=== PATIENT | female | born 1970 | race Caucasian/White ===

== ENCOUNTER 2017-10-04 14:11 | Emergency (ER) | payer OTHER ==
--- NOTE | 2017-10-04 15:13 | EDM.PDOC ---
ED HPI GENERAL MEDICAL PROBLEM - General Chief Complaint: Fever Stated Complaint: HAS CANCER RUNNING A TEMP UTI??? Time Seen by Provider: 10/04/17 15:13 Source of Information: Reports: Patient History Limitations: Reports: No Limitations - History of Present Illness INITIAL COMMENTS - FREE TEXT/NARRATIVE: pt arrived with a episode of chilling. she has a history of breast Ca with metastatic disease to the bone. She is on chemo. 1 month ago she had a uti which caused a fever for her. Onset: Other ( started last nite. ) Duration: Hour(s): Location: Reports: Generalized Associated Symptoms: Reports: Fever/Chills, Weakness Left Chest Pain Score (Numeric/FACES): 4 - Related Data Allergies Allergy/AdvReac Type Severity Reaction Status Date / Time No Known Allergies Allergy Verified 10/04/17 14:39 Home Meds: Home Meds Palbociclib [Ibrance] 125 mg PO DAILY 10/04/17 [History] Past Medical History Cardiovascular History: Reports: High Cholesterol Respiratory History: Reports: Other (See Below) Other Respiratory History: pneumonolitis l lung [employer] History: Reports: Psychiatric History: Reports: Anxiety Oncologic (Cancer) History: Reports: Breast - Infectious Disease History Infectious Disease History: Reports: Chicken Pox - Past Surgical History GI Surgical History: Reports: Appendectomy Female Surgical History: Reports: Breast Reconstruction, Hysterectomy, Other (See Below) Other Female Surgeries/Procedures: Breast removal Social & Family History - Tobacco Use Smoking Status *Q: Never Smoker Second Hand Smoke Exposure: No - Caffeine Use Caffeine Use: Reports: Coffee - Alcohol Use Days Per Week of Alcohol Use: 0 - Recreational Drug Use Recreational Drug Use: No ED ROS GENERAL - Review of Systems Review Of Systems: See Below Constitutional: Reports: Fever, Chills, Malaise HEENT: Reports: No Symptoms Respiratory: Reports: No Symptoms Cardiovascular: Reports: No Symptoms Endocrine: Reports: No Symptoms GI/Abdominal: Reports: Other (pt had shaking chills last nite. ) : Reports: No Symptoms Musculoskeletal: Reports: No Symptoms Skin: Reports: No Symptoms ED EXAM, GENERAL - Physical Exam Exam: See Below Free Text/Narrative:: pt had chills and spiked a temp. She had a UTI 1 month ago and she feels about the same. Exam Limited By: No Limitations General Appearance: Alert, Anxious, Mild Distress Ears: Normal TMs Nose: Normal Inspection Throat/Mouth: Normal Inspection Head: Atraumatic Neck: Normal Inspection Respiratory/Chest: No Respiratory Distress Cardiovascular: Regular Rate, Rhythm GI/Abdominal: Soft, Non-Tender (Female) Exam: Other ( Pt had no UTI symptoms. ) Rectal (Female) Exam: Deferred Back Exam: Normal Inspection Extremities: Normal Inspection Neurological: Alert, Oriented, Normal Cognition Psychiatric: Anxious Course - Vital Signs Last Recorded V/S: Last Vital Signs Temp 37.2 C 10/04/17 15:50 Pulse 99 10/04/17 15:50 Resp 16 10/04/17 15:50 BP 120/79 10/04/17 15:50 Pulse Ox 96 10/04/17 14:48 - Orders/Labs/Meds Orders: Active Orders 24 hr Category Date Time Status Chest 2V [CR] Stat Exams 10/04/17 15:12 Taken CULTURE BLOOD [BC] Urgent Lab 10/04/17 15:04 Received CULTURE BLOOD [BC] Urgent Lab 10/04/17 15:46 Received CULTURE URINE [RM] Stat Lab 10/04/17 15:20 Received CULTURE URINE [RM] Stat Lab 10/04/17 15:51 Ordered UA W/MICROSCOPIC [URIN] Urgent Lab 10/04/17 14:53 Ordered Blood Culture x2 Reflex Set [OM.PC] Urgent Oth 10/04/17 15:11 Ordered Labs: Laboratory Tests 10/04/17 10/04/17 10/04/17 Range/Units 14:53 15:09 15:09 WBC 2.2 L (4.5-11.0) K/uL RBC 3.62 (3.30-5.50) M/uL Hgb 12.5 (12.0-15.0) g/dL Hct 36.7 (36.0-48.0) % MCV 101 H (80-98) fL MCH 35 H (27-31) pg MCHC 34 (32-36) % Plt Count 162 (150-400) K/uL Neut % (Auto) 89 H (36-66) % Lymph % (Auto) 6 L (24-44) % [place] % (Auto) 5 (2-6) % Eos % (Auto) 0 L (2-4) % Baso % (Auto) 0 (0-1) % Sodium 137 L (140-148) mmol/L Potassium 3.7 (3.6-5.2) mmol/L Chloride 101 (100-108) mmol/L Carbon Dioxide 25 (21-32) mmol/L Anion Gap 14.7 H (5.0-14.0) mmol/L BUN 18 (7-18) mg/dL Creatinine 1.0 (0.6-1.0) mg/dL Est Cr Clr Drug Dosing 64.41 mL/min Estimated GFR (MDRD) 59 L (>60) Glucose 102 (74-106) mg/dL Calcium 8.8 (8.5-10.1) mg/dL Total Bilirubin 0.6 (0.2-1.0) mg/dL AST 20 (15-37) U/L ALT 27 (12-78) U/L Alkaline Phosphatase 65 (46-116) U/L Total Protein 6.9 (6.4-8.2) g/dL Albumin 3.6 (3.4-5.0) g/dL Globulin 3.3 (2.3-3.5) g/dL Albumin/Globulin Ratio 1.1 L (1.2-2.2) Urine Color Yellow Urine Appearance Slightly cloudy Urine pH 8.0 (4.5-8.0) Ur Specific [place] 1.015 (1.008-1.030) Urine Protein Negative (NEGATIVE) mg/dL Urine Glucose (UA) Normal (NEGATIVE) mg/dL Urine Ketones Negative (NEGATIVE) mg/dL Urine Occult Blood Negative (NEGATIVE) Urine Nitrite Negative (NEGATIVE) Urine Bilirubin Negative (NEGATIVE) Urine Urobilinogen Normal (NORMAL) mg/dL Ur Leukocyte Esterase Moderate (NEGATIVE) Urine RBC 0-5 (0-5) Urine WBC 5-10 H (0-5) Ur Epithelial Cells Many Amorphous Sediment Few Urine Bacteria Not seen Urine Mucus Not seen Meds: Medications Discontinued Medications Generic Name Dose Route Start Last Admin Trade Name Freq PRN Reason Stop Dose Admin Ceftriaxone Sodium 1 gm/ 0 gm 10/04/17 15:56 Lidocaine HCl 2.1 ml IM 10/04/17 15:57 ONETIME ONE - Re-Assessments/Exams Free Text/Narrative Re-Assessment/Exam: 10/04/17 16:00 urine did not have any bacteria but she did have 10-15 wbcs. A culture was set up, blood cultures were obtained x2. Her chest xray has a definite infiltrate in the left lung base. She has a history of pneumolitis from, the radiation . It is certainly possible that she could have a small foci of infection. Blood cultures are pending and a urine culture is pending. Departure - Departure Time of Disposition: 16:04 Disposition: Home, Self-Care 01 Condition: Fair Clinical Impression: Pneumonia, Metastatic breast cancer - Discharge Information Referrals: PCP,None [Primary Care Provider] - Forms: ED Department Discharge Care Plan Goals: tylenol for temp, will get the results of the blood cultures and urine cultures to her, push fluid, augmentin 875 bid, rtc if pt should get sicker, see regular Dr When she returns to the [facility] area. Put xray on disc so pt can take it back to [facility]. - My Orders Last 24 Hours: My Active Orders 10/04/17 14:53 UA W/MICROSCOPIC [URIN] Urgent 10/04/17 15:04 CULTURE BLOOD [BC] Urgent 10/04/17 15:11 Blood Culture x2 Reflex Set [OM.PC] Urgent 10/04/17 15:12 Chest 2V [CR] Stat 10/04/17 15:20 CULTURE URINE [RM] Stat 10/04/17 15:46 CULTURE BLOOD [BC] Urgent 10/04/17 15:51 CULTURE URINE [RM] Stat - Assessment/Plan Last 24 Hours: My Active Orders 10/04/17 14:53 UA W/MICROSCOPIC [URIN] Urgent 10/04/17 15:04 CULTURE BLOOD [BC] Urgent 10/04/17 15:11 Blood Culture x2 Reflex Set [OM.PC] Urgent 10/04/17 15:12 Chest 2V [CR] Stat 10/04/17 15:20 CULTURE URINE [RM] Stat 10/04/17 15:46 CULTURE BLOOD [BC] Urgent 10/04/17 15:51 CULTURE URINE [RM] Stat
[2017-10-04] MEDS: cefTRIAXone 1 GM, Lidocaine 1% 2.1 ML IM ONE ×2 (16:09)
--- NOTE | 2017-10-05 08:26 | CR ---
CHEST: 2 view CLINICAL HISTORY:Fever and chills COMPARISON:None FINDINGS: There is pneumonic infiltrate in the lingula. Heart and pulmonary vascularity appear herson l. There are are no effusions.. IMPRESSION: Lingular pneumonia
== END 2017-10-04 16:23 | disposition home or self-care (01) ==
LOC: JP.ED 14:11
DX: J18.9 Pneumonia, unspecified organism (principal); C50.919 Malignant neoplasm of unspecified site of unspecified female breast; C79.51 Secondary malignant neoplasm of bone; E78.00 Pure hypercholesterolemia, unspecified; F41.9 Anxiety disorder, unspecified; Z79.899 Other long term (current) drug therapy
CPT/HCPCS: 36415; 71046; 80053; 81001; 85025; 87040; 87086; 96372; 99284; J0696